=== PATIENT | female | born 1990 | race African-American/Black ===

== ENCOUNTER 2023-07-25 23:08 | Emergency (ER) | payer SELFPAY ==
[~2023-07-25] VITALS: Ht 170.2 cm; Wt 87.0 kg
[2023-07-25] MEDS ORDERED: METHYLPREDNISOLONE SOD SUCC 125MG/2ML (ACT-O-VIAL) IV STA (23:16)
[2023-07-25] MEDS ORDERED: IPRATROPIUM BROMIDE (0.02%) 0.5MG/2.5ML NEB HHN STA (23:16)
[2023-07-25] MEDS ORDERED: ALBUTEROL (0.083%) 2.5MG/3ML NEB HHN STA (23:16)
[2023-07-25] MEDS ORDERED: MAGNESIUM 2 G PREMIX 50 ML IV STA (23:16)
[2023-07-25 23:42] LABS: EOSINOPHILS % 7.7 % (0.0-5.0); HEMOGLOBIN. 13.6 g/dL (12.0-16.0); LYMPHOCYTES % 37.9 % (20.0-50.0); MEAN CORPUSCULAR HEMOGLOBIN 28.8 pg (28.0-32.0); MEAN CORPUSCULAR HGB CONC 33.9 g/dL (31.0-37.0); MEAN CORPUSCULAR VOLUME 84.9 fL (81.0-99.0); MEAN PLATELET VOLUME 9.4 fl (7.4-10.4); NEUTROPHILS % 48.4 % (40.0-76.0); PLATELET 238 x1000/uL (130-400); RED BLOOD CELL COUNT 4.71 mill/uL (4.2-5.4); RED CELL DISTRIBUTION WIDTH 13.2 % (11.6-14.6); WHITE BLOOD COUNT 7.7 x1000/uL (4.5-11.0)
[2023-07-25 23:45] VITALS: BP 136/85; TEMP 98.5
[2023-07-25 23:50] LABS: CHLORIDE 107 mEq/L (98-107); INDEX HEMOLYSI 1 (1-3); INDEX ICTERIC 1 (1-4); INDEX LIPEMIC 1 (1-3); POTASSIUM 3.5 mEq/L (3.5-5.1); SODIUM 139 mEq/L (136-145)
[2023-07-25 23:52] LABS: PARTIAL THROMBOPLASTIN TIME 22.7 sec (23.4-31.0); PROTHROMBIN TIME 10.8 sec (9.6-11.0)
[2023-07-26] LABS: ALANINE AMINOTRANSFERASE 20 IU/L (13-61); ALBUMIN 3.8 g/dL (3.4-5.0); ASPARTATE AMINOTRANSFERASE 16 IU/L (15-37); BILIRUBIN TOTAL 0.3 mg/dL (0.1-1.0); CALCIUM 8.8 mg/dL (8.5-10.1); CARBON DIOXIDE 26 mEq/L (21-32); CREATININE 0.7 mg/dL (0.6-1.3); GLUCOSE 132 mg/dL (70-105); PROTEIN TOTAL 7.6 g/dL (6.0-8.3); UREA NITROGEN BLOOD 14 mg/dL (7-21)
[2023-07-26 00:02] VITALS: PULSE 83; RESP 20; O2SAT 99
[2023-07-26 00:05] LABS: TROPONIN I HIGH SENSITIVITY < 4 ng/L (<54)
[2023-07-26] MEDS ORDERED: ONDANSETRON HCL 4MG/2ML INJ IV ONE (00:15)
[2023-07-26] MEDS ORDERED: ALBU6.7H3 INH (00:39)
[2023-07-26] MEDS ORDERED: P50 PO (00:39)
[2023-07-26 01:05] LABS: CLARITY URINE CLOUDY (CLEAR); COLOR URINE YELLOW (YELLOW); GLUCOSE URINE NEGATIVE (NEGATIVE); KETONES URINE NEGATIVE (NEGATIVE); LEUKOCYTE ESTERASE URINE TRACE (NEGATIVE); NITRITE URINE NEGATIVE (NEGATIVE); OCCULT BLOOD URINE NEGATIVE (NEGATIVE); PROTEIN URINE NEGATIVE (NEGATIVE)
[2023-07-26 01:08] LABS: BACTERIA URINE 2+; RBC URINE NONE SEEN /hpf (0-2); YEAST URINE NONE SEEN
[2023-07-26 02:42] LABS: SQUAMOUS EPITHELIAL CELL URINE FEW /lpf (RARE/1+)
== END 2023-07-26 01:37 | disposition home or self-care (01) ==
LOC: ER 23:08
DX: J45.901 Unspecified asthma with (acute) exacerbation (principal); Z98.890 Other specified postprocedural states
CPT/HCPCS: 80053; 85025; 85610; 85730; 84484; 36415; 93005; 94644; 99284; 81003; 81025; 96365; 96375; J3475; J2930; Z7610 ×4; J2405